=== PATIENT | male | born 1935 | race African-American/Black ===

== ENCOUNTER 2023-09-19 14:21 | Emergency (ER) | payer BC, MEDICARE, OTHER ==
[~2023-09-19] VITALS: Ht 180.3 cm; Wt 66.0 kg
[2023-09-19 14:29] VITALS: O2SAT 98
[2023-09-19 15:13] LABS: EOSINOPHILS % 0.4 % (0.0-5.0); LYMPHOCYTES % 29.6 % (20.0-50.0); MEAN CORPUSCULAR HEMOGLOBIN 26.9 pg (28.0-32.0); MEAN CORPUSCULAR HGB CONC 32.7 g/dL (31.0-37.0); MEAN CORPUSCULAR VOLUME 82.4 fL (80.0-94.0); MEAN PLATELET VOLUME 7.4 fl (7.4-10.4); MONOCYTES % 7.8 % (2.0-8.0); NEUTROPHILS % 61.2 % (40.0-76.0); PLATELET 308 x1000/uL (130-400); RED BLOOD CELL COUNT 5.58 mill/uL (4.7-6.1); WHITE BLOOD COUNT 6.1 x1000/uL (4.5-11.0)
[2023-09-19 15:26] LABS: ALANINE AMINOTRANSFERASE 17 IU/L (10-49); ALBUMIN 4.5 g/dL (3.2-4.8); ASPARTATE AMINOTRANSFERASE 22 IU/L (<34); BILIRUBIN TOTAL 0.5 mg/dL (0.1-1.0); CARBON DIOXIDE 29 mEq/L (21-32); CHLORIDE 107 mEq/L (98-107); CREATININE 1.1 mg/dL (0.6-1.3); GLUCOSE 115 mg/dL (70-105); POTASSIUM 4.8 mEq/L (3.5-5.1); PROTEIN TOTAL 7.5 g/dL (6.0-8.3); SODIUM 143 mEq/L (136-145); TROPONIN I HIGH SENSITIVITY 15 ng/L (3.0-53); UREA NITROGEN BLOOD 12 mg/dL (9-23)
[2023-09-19] MEDS ORDERED: FAMOTIDINE 20MG TABLET PO SCH (18:00)
[2023-09-19 21:48] LABS: TROPONIN I HIGH SENSITIVITY 19 ng/L (3.0-53)
[2023-09-20 00:26] VITALS: BP 183/78; PULSE 58; RESP 18; TEMP 98.3
== END 2023-09-20 00:30 | disposition short-term general hospital (02) ==
LOC: ER 14:21
DX: R07.9 Chest pain, unspecified (principal); R51.9 Headache, unspecified; I10 Essential (primary) hypertension; Z98.890 Other specified postprocedural states; Z85.9 Personal history of malignant neoplasm, unspecified
CPT/HCPCS: 36415; 71045; 71250; 74176; 80053; 84484; 85025; 85379; 93005; 99285